=== PATIENT | female | born 1980 | race Caucasian/White ===

== ENCOUNTER → 2021-02-12 | Outpatient (CLI) | payer OTHER ==
--- NOTE | 2021-02-12 13:47 | REP ---
INDICATION: [id number], [id number] DEFICIENCY COMPARISON: None TECHNIQUE: Standard helical technique without contrast FINDINGS: There is no mediastinal or hilar adenopathy. There are no pleural or pericardial effusions. The imaged upper abdomen and imaged osseous structures are within normal limits. Evaluation of the lung dugan shows no masses or opacities. There is a 4 mm size nodule in the lateral basal segment of the right lower lobe. There is mild cylindrical bronchiectasis. There are no parenchymal bulla or pleural blebs. IMPRESSION: 1. There is a 4 mm size nodule in the right lower lobe as described above. According to the revised Fleischner society criteria this represents a category 3 nodule for which a six-month follow-up chest CT is recommended. 2. There is mild cylindrical bronchiectasis. <Electronically signed by Edgardo Hicks > 02/12/21 [id number]
== END ==
LOC: M PLAIMG 12:53
PROVIDERS: ATTEND Physician Assistant
DX: E88.01 Alpha-1-antitrypsin deficiency (principal)

== ENCOUNTER → 2021-03-12 | Outpatient (CLI) | payer OTHER ==
[~2021-03-12] MED LIST: METHACHOLINE KIT (J7674) INH ONE
== END ==
LOC: M CARPUL 09:35
PROVIDERS: ATTEND Physician Assistant
DX: R06.00 Dyspnea, unspecified (principal)
CPT/HCPCS: 94070; J7674